=== PATIENT | male | born 1965 | race Caucasian/White ===

== ENCOUNTER 2016-09-26 19:37 | Emergency (ER) | payer BC ==
[2016-09-26 21:15] VITALS: BP 145/71
[2016-09-26] MEDS ORDERED: Clindamycin CAP* 150 MG PO ONE (21:32)
--- NOTE | 2016-09-26 21:38 | UC ---
Keith Boykin Benjamin, scribed for Kalie Andrew MD on 09/26/16 at 2128 . Dental HPI - HPI Summary HPI Summary: 50yo male c/o of right lower tooth pain with cheek swelling since yesterday. Pain has worsened today. Pt has hx of root canal procedure done 1 year ago at the site of his dental pain. Pt tried peroxide, baking soda, Motrin and Tylenol for pain but no pain. Last OTC pain med he took was ibuprofen x3 at 7:30pm. Pt denies any pain in his ears or signs of drooling. No fevers, chills. No marks, no ear pain. Reviewed pts medication and allergy lists. - History of Current Complaint Chief Complaint: UCDentalProblem Stated Complaint: TOOTH PAIN,JAW SWELLING Time Seen by Provider: 09/26/16 21:16 Hx Obtained From: Patient Onset/Duration: Lasting Days - 1 day ago, Still Present, Worse Since - today Severity: Moderate Pain Intensity: 8 Pain Scale Used: 0-10 Numeric Aggravating: Nothing Alleviating: Nothing Related History: Previous Dental Care on Same Tooth - root canal - Allergies/Home Medications Allergies/Adverse Reactions: Allergies Allergy/AdvReac Type Severity Reaction Status Date / Time No Known Allergies Allergy Verified 04/01/14 10:31 PMH/Surg Hx/FS Hx/Imm Hx - Additional Past Medical History Additional PMH: Root canal procedure: right upper tooth Previously Healthy: Yes - Surgical History Surgical History: None - Family History Known Family History: Negative: Cardiac Disease, Hypertension - Social History Occupation: Employed Full-time Lives: With Family Alcohol Use: None Substance Use Type: None Smoking Status (MU): Never Smoked Tobacco Review of Systems Constitutional: Negative Skin: Negative Eyes: Negative ENT: Dental Pain - right lower, with swelling in surrounding gum Respiratory: Negative Cardiovascular: Negative Gastrointestinal: Negative Genitourinary: Negative Motor: Negative Neurovascular: Negative Musculoskeletal: Negative Neurological: Negative Psychological: Negative All Other Systems Reviewed And Are Negative: Yes Physical Exam Triage Information Reviewed: Yes Appearance: Well-Appearing, Well-Nourished, Pain Distress - mild discomfort Vital Signs: Initial Vital Signs Temp 98.4 F 09/26/16 20:47 Pulse 82 09/26/16 20:47 Resp 20 09/26/16 20:47 BP 145/71 09/26/16 20:47 Pulse Ox 99 08/07/17 20:47 Vital Signs Reviewed: Yes Eye Exam: Normal ENT: Positive: Hearing grossly normal, Pharynx normal, TMs normal Dental: Positive: Percussion Tenderness @, Gross Decay/Caries @, Abscess @ - # 31 pt with broken tooth + edema at gumline No dischabuge indurated, not fluctuant mild edema right submandibular no warmth no difficulty with speech, swallowing no trismus Neck exam: Normal Neck: Positive: Supple, Nontender, No Lymphadenopathy Respiratory Exam: Normal Respiratory: Positive: Chest non-tender, Lungs clear, Normal breath sounds, No respiratory distress, No accessory muscle use Cardiovascular Exam: Normal Cardiovascular: Positive: RRR, No Murmur Abdominal Exam: Normal Abdomen Description: Positive: Nontender, No Organomegaly, Soft Bowel Sounds: Positive: Present Musculoskeletal Exam: Normal Neurological Exam: Normal Psychological Exam: Normal Skin Exam: Normal Dental Complaint Course/Dx - Course Course Of Treatment: Blood pressure noted and patient informed to follow up with PCP. PT with dental infection #31 +edema, induration. no fluctuance. mild LA. will start clinda. swish spit. motrin/apap. cold pack to face. dental list given. return precautions review - Differential Dx/Diagnosis Provider Diagnoses: dental abscess Discharge - Discharge Plan Condition: Stable Disposition: HOME Prescriptions: Clindamycin Cap(NF) [Clindamycin Cap 300 mg Cap(NF)] 300 mg PO TID #30 cap Patient Education Materials: Dental Abscess (ED) Referrals: Markus Delacruz MD [Primary Care Provider] - Additional Instructions: - stay well hydrated. Drink plenty of non-alcoholic, non-caffinated beverages - Swish and spit with warm, salt water - Okay to apply ice packs (wrapped in a towel) to the outside check - Take antibiotics as prescribed until gone. These will likely cause diarrhea. Okay to take pro-biotics, found in the vitamin aisle - alternate ibuprofen (advil, motrin) 600mg and Tylenol every 3hours for pain. take with food. do NOT take for more than 4-5 days - Call your dentist or one from the list provided for follow-up care If you develop difficulty swallowing, drooling, swelling under your jaw, fevers or other concerns- you should to the emergency department The documentation as recorded by the Keith cordoba Benjamin accurately reflects the service I personally performed and the decisions made by me, Kalie Andrew MD.
== END 2016-09-26 21:52 | disposition home or self-care (01) ==
LOC: UCEAST 19:37
DX: K04.7 Periapical abscess without sinus (principal)
CPT/HCPCS: 99212; A9270-GY; G0463

== ENCOUNTER 2018-05-01 23:23 | Emergency (ER) | payer BC ==
--- NOTE | 2018-05-02 01:57 | ED ---
Skin Complaint - HPI Summary HPI Summary: The patient is a 52 y/o M presenting to [facility] with a chief complaint of gradual onset rash on upper back that is erythematous, itchy, and burning with new onset of blister-like lesions around the mouth starting yesterday. Last night around 2200, he woke up with numbness in his face. He took a sinus relief medication for an ongoing cold that he thought was the source of his rashes, and he also took Ibuprofen and Excedrin. He denies cough and SOB. He hasn't had symptoms like this before, and he doesn't take any medications. - History of Current Complaint Chief Complaint: EDRashSkinAbscess Time Seen by Provider: 05/02/18 01:37 Stated Complaint: RASH, NUMBNESS IN FACE, BLISTERS FROM MEDS PER PT Hx Obtained From: Patient Onset/Duration: Started Hours Ago - skin changes a day ago, numbness in face at 2200 last night, Still Present Timing: Lasting Hours Onset Severity: Mild Current Severity: Mild Pain Intensity: 0 Pain Scale Used: 0-10 Numeric Skin Location: Face - blisters around mouth, Other: - upper back Character: Redness Aggravating Symptom(s): Nothing Alleviating Symptom(s): Nothing Associated Signs & Symptoms: Numbness - in face - Allergy/Home Medications Allergies/Adverse Reactions: Allergies Allergy/AdvReac Type Severity Reaction Status Date / Time No Known Allergies Allergy Verified 05/01/18 23:33 PMH/Surg Hx/FS Hx/Imm Hx Endocrine/Hematology History: Denies: Hx Diabetes, Hx Thyroid Disease Cardiovascular History: Denies: Hx Hypertension, Hx Pacemaker/ICD Respiratory History: Denies: Hx Asthma, Hx Chronic Obstructive Pulmonary Disease (COPD) History: Denies: Hx Renal Disease Sensory History: Denies: Hx Contacts or Glasses, Hx Deafness Opthamlomology History: Denies: Hx Contacts or Glasses Neurological History: Denies: Hx Dementia, Hx Seizures Psychiatric History: Denies: Hx Autism, Hx Substance Abuse - Immunization History Date of Tetanus Vaccine: 3 WEEKS AGO Date of Influenza Vaccine: N Infectious Disease History: No Infectious Disease History: Denies: Hx Clostridium Difficile, Hx Hepatitis, Hx Human Immunodeficiency Virus (HIV), Hx of Known/Suspected MRSA, Hx Shingles, Hx Tuberculosis, Hx Known/ Suspected VRE, Hx Known/Suspected VRSA, History Other Infectious Disease, Traveled Outside the [place] in Last 30 Days - Family History Known Family History: Negative: Cardiac Disease, Hypertension - Social History Alcohol Use: None Substance Use Type: Reports: None Hx Tobacco Use: Yes Smoking Status (MU): Never Smoked Tobacco Review of Systems Negative: Shortness Of Breath Positive: Other - blister-like lesions on lips, erythematous rash on upper back that is itchy with a burning sensation Positive: Numbness - generalized in face All Other Systems Reviewed And Are Negative: Yes Physical Exam - Summary Physical Exam Summary: Appearance: Well-appearing, Well-nourished, lying in bed comfortable Skin: Warm, dry, Upper and lower lips have a number of isolated vesicular lesions, nothing on buccal mucosa, no vesicular on upper back but there is erythema Eyes: sclera anicteric, no conjunctival pallor ENT: mucous membranes moist Neck: deferred Respiratory: No signs of respiratory distress Cardiovascular: Appears well perfused, pulses are nml Abdomen: deferred Musculoskeletal: Moving all 4 extremities without obvious discomfort Neurological: Awake and alert, mentation is normal, speech is fluent and appropriate Psychiatric: affect is normal, does not appear anxious or depressed Triage Information Reviewed: Yes Vital Signs On Initial Exam: Initial Vitals Temp Pulse Resp BP Pulse Ox 97.2 F 71 16 144/93 94 05/01/18 23:26 05/01/18 23:26 05/01/18 23:26 05/01/18 23:26 05/01/18 23:26 Vital Signs Reviewed: Yes Diagnostics - Vital Signs Vital Signs Temp Pulse Resp BP Pulse Ox 05/01/18 23:26 97.2 F 71 16 144/93 94 - Laboratory Lab Statement: Any lab studies that have been ordered have been reviewed, and results considered in the medical decision making process. Course/Dx - Course Course Of Treatment: The patient is a 52 y/o M with a chief complaint of gradual onset rash on upper back that is erythematous, itchy, and burning with new onset of blister-like lesions around the mouth starting yesterday. Last night around 2200, he woke up with numbness in his face. He took a sinus relief medication for an ongoing cold that he thought was the source of his rashes, and he also took Ibuprofen and Excedrin. He denies cough and SOB. No previous hx. Upon physical examination, the patient presents with upper and lower lips have a number of isolated vesicular lesions, nothing on buccal mucosa, no vesicular on upper back but there is erythema. He is diagnosed with herpes labialis. He agrees with discharge plan with prescription of Acyclovir and follow up with PCP. He understands the need for return to the emergency department for any new or worsening symptoms. - Diagnoses Provider Diagnoses: Herpes labialis Discharge - Sign-Out/Discharge Documenting (check all that apply): Patient Departure - Patient will be discharged home. Patient Received Moderate/Deep Sedation with Procedure: No - Discharge Plan Condition: Good Disposition: HOME Prescriptions: Acyclovir OINT 5%(NF) [Zovirax Oint 5%(NF)] 1 applic TOPICAL .SIX TIMES A DAY 5 Days #30 g Patient Education Materials: Oral Herpes Simplex Virus Infections (ED) Forms: *Work Release Referrals: Markus Delacruz MD [Primary Care Provider] - 1 Week (if not improving) Additional Instructions: Follow up with your primary care provider in a week. Return to the emergency department for any new or worsening symptoms. - Billing Disposition and Condition Condition: GOOD Disposition: Home - Attestation Statements Document Initiated by Eileen: Yes Documenting Scribe: Kathie Khan Provider For Whom Eileen is Documenting (Include Credential): Dr. Saúl Dillon MD Scribe Attestation: Kathie Boykin scribed for Dr. Saúl Dillon MD on 05/02/18 at 0444. Scribe Documentation Reviewed: Yes Provider Attestation: The documentation as recorded by the Kathie cordoba accurately reflects the service I personally performed and the decisions made by me, Dr. Saúl Dillon MD Status of Scribe Document: Viewed
[2018-05-02 02:13] VITALS: BP 139/89
== END 2018-05-02 02:12 | disposition home or self-care (01) ==
LOC: ED 23:23
DX: B00.1 Herpesviral vesicular dermatitis (principal); R21 Rash and other nonspecific skin eruption
CPT/HCPCS: 99281